=== PATIENT | female | born 1940 | race Caucasian/White ===

== ENCOUNTER 2018-11-30 22:20 | Emergency (ER) | payer OTHER ==
[~2018-11-30] VITALS: Ht 157.5 cm; Wt 78.5 kg
[2018-11-30] MEDS ORDERED: ATACAND HCT 321 EAC1 (22:44)
[2018-11-30] MEDS ORDERED: METOPROLOL SUC100 MG (22:44)
[2018-11-30] MEDS ORDERED: FORTAMET500 MG (22:44)
[2018-11-30] MEDS ORDERED: ALDACTONE25 MG (22:45)
== END 2018-12-01 16:35 ==
LOC: ER 22:20 → CPU-OBS 22:30 → ER 12-01 16:35
DX: R07.89 Other chest pain (principal); Z96.652 Presence of left artificial knee joint